=== PATIENT | female | born 1975 | race Two or more races ===

== ENCOUNTER 2016-12-21 17:57 | Emergency (ER) | payer OTHER ==
[~2016-12-21] VITALS: Ht 157.5 cm; Wt 102.9 kg
[2016-12-21] MEDS ORDERED: MAALOX/HYOSCYAMINE/LIDOCAINE 45 ML BOTTLE ONE (18:46)
[2016-12-21] MEDS ORDERED: DIPHENHYDRAMINE 25 MG CAPSULE ONE (18:46)
[2016-12-21] MEDS ORDERED: MAALOX/HYOSCYAMINE/LIDOCAINE 45 ML BOTTLE PO ONE (19:00)
[2016-12-21] MEDS ORDERED: DIPHENHYDRAMINE 25 MG CAPSULE PO ONE (19:00)
[2016-12-21 19:03] LABS: HEMOGLOBIN 15.1 g/dL (11.7-16.4)
[2016-12-21 19:16] LABS: ASPARTATE AMINO TRANSFERASE 27 U/L (15-37); BLOOD UREA NITROGEN 11 mg/dL (7-18)
[2016-12-21 19:22] LABS: IS PT STATUS REG ER OR PRE ER? YES
[2016-12-21 19:28] VITALS: BP 124/76
[2016-12-21] MEDS ORDERED: POTASSIUM CHLORIDE 20 MEQ TAB.ER.PRT PO ONE (19:30)
[2016-12-21] MEDS ORDERED: POTASSIUM CHLORIDE 20 MEQ TAB.ER.PRT ONE (19:41)
== END 2016-12-21 19:59 | disposition home or self-care (01) ==
LOC: ED 19:42
DX: R07.2 Precordial pain (principal); K21.0 Gastro-esophageal reflux disease with esophagitis; L50.9 Urticaria, unspecified; E87.6 Hypokalemia; I10 Essential (primary) hypertension
CPT/HCPCS: 36415; 71010; 80053; 83690; 84484; 84703; 85025; 93005; 99285; Q0163

== ENCOUNTER 2020-09-25 11:21 | Inpatient (IN) | payer OTHER ==
[~2020-09-25] VITALS: Ht 157.5 cm; Wt 103.6 kg
--- NOTE | 2020-09-25 12:35 | NUR ---
PT PLACED ON MONITOR, IV STARTED, LABS DRAWN AND LABELLED AND LEFT AT BEDSIDE FOR SPECIMEN TECHNICIAN. PT C/O COUGH AND TACHYCARDIA. RECENTLY DX WITH COVID 19 BY [facility] AND PT REPORTS TAKING DECONGESTANTS AND OTHER MEDICATIONS FOR HER COUGH. NAD NOTED AT THIS TIME. NO WOB NOTED.
[2020-09-25 12:49] LABS: BASOPHILS % (AUTO) 0 % (0-1); EOSINOPHILS % (AUTO) 0 % (1-7); LYMPHOCYTES % (AUTO) 20 % (22-44); MEAN CORPUSCULAR HEMOGLOBIN 31.3 pg (27.0-34.8); MEAN CORPUSCULAR HGB CONC 34.8 g/dL (32.4-35.8); MEAN PLATELET VOLUME 8.4 fL (7.4-10.4); MONOCYTES % (AUTO) 6 % (2-9); NEUTROPHILS % (AUTO) 74 % (42-75); PLATELET COUNT 212 x10^3/uL (130-400); RED BLOOD COUNT 5.21 x10^6/uL (3.82-5.3); RED CELL DISTRIBUTION WIDTH 13.2 % (9.6-15.2)
[2020-09-25 13:01] LABS: ALANINE AMINOTRANSFERASE 127 U/L (12-78); ALBUMIN 3.6 g/dL (3.4-5.0); ANION GAP 6 mmol/L (5-15); CHLORIDE 105 mmol/L (98-107); CREATININE 0.82 mg/dL (0.55-1.02)
[2020-09-25 13:07] LABS: ALKALINE PHOSPHATASE 133 U/L (45-117); BILIRUBIN,TOTAL 0.5 mg/dL (0.2-1.0); TOTAL PROTEIN 8.8 g/dL (6.4-8.2); TROPONIN I < 0.015 ng/mL (0.000-0.045)
[2020-09-25 13:09] LABS: D-DIMER (DIC) 1.43 ug/mlFEU (0.00-0.52)
[2020-09-25 13:15] LABS: MD NO
--- NOTE | 2020-09-25 13:42 | NUR ---
HOB MOVED TO POSITION OF COMFORT FOR PT. PT ASKING FOR WATER AND RN EDUCATED PT ON NPO STATUS UNTIL ALL IMAGING HAS BEEN COMPLETED. NAD NOTED AT THIS TIME. PT DENIES ANY FURTHER NEEDS.
--- NOTE | 2020-09-25 14:37 | NUR ---
SECONDARY RN CALL TO CT FOR UPDATE ON PT PLACE IN LINE.
--- NOTE | 2020-09-25 14:45 | NUR ---
ROOM AIR POX NOW 85% - PLACED ON 2L NC. PROVIDER MADE AWARE TO CT SCAN AT 2:50P
[2020-09-25] MEDS ORDERED: OMNIPAQUE 350 MG/ML, 100ML BOTTLE ONE (15:10)
[2020-09-25] MEDS ORDERED: CEFTRIAXONE PMX 1GM/50ML 50 ML IV ONE (15:30)
[2020-09-25] MEDS ORDERED: DEXAMETHASONE 4 MG/ML, 1ML IVPush ONE (15:30)
[2020-09-25] MEDS ORDERED: DOXYCYCLINE 100 MG in DEXTROSE 5% 250 ML IV ONE (15:30)
--- NOTE | 2020-09-25 15:32 | NUR ---
REPORT FROM CRIS SAM. PT TOLERATING NC WELL. LAYING BACK IN BED WATCHING TELEVISION. NAD NOTED AT THIS TIME. SIDE RAILS UP, CALL LIGHT IN REACH.
[2020-09-25] MEDS ORDERED: CEFTRIAXONE PMX 1GM/50ML 50 ML ONE (15:39)
[2020-09-25] MEDS ORDERED: DEXAMETHASONE 4 MG/ML, 1ML ONE (15:39)
[2020-09-25] MEDS ORDERED: LISI-167 PO (16:36)
--- NOTE | 2020-09-25 16:42 | NUR ---
PT LAYING BACK IN BED, WATCHING TELEVISION. NAD NOTED AT THIS TIME. PT SATURATING WELL ON NC. IVF INFUSING PER EMAR. SIDE RAILS UP, CALL LIGHT IN REACH. AWAITING ADMISSION BED.
--- NOTE | 2020-09-25 17:10 | NUR ---
FIRST ATTEMPT TO CALL REPORT.
[2020-09-25] MEDS ORDERED: MELATONIN 5 MG TABLET PO PRN (17:30)
[2020-09-25] MEDS ORDERED: THIAMINE 100MG TABLET PO ONE (17:30)
[2020-09-25] MEDS ORDERED: ONDANSETRON ODT 4 MG PO PRN (17:30)
[2020-09-25] MEDS ORDERED: ENALAPRILAT 1.25 MG/ML, 2ML IVPush PRN (17:30)
[2020-09-25] MEDS ORDERED: ENOXAPARIN 40 MG/0.4 ML SQ SCH (17:30)
[2020-09-25] MEDS ORDERED: ONDANSETRON 2MG/ML, 2ML IVPush PRN (17:30)
[2020-09-25] MEDS ORDERED: GUAIFENESIN/DM 200-20MG, 10ML UDC PO PRN (17:30)
[2020-09-25] MEDS ORDERED: ACETAMINOPHEN 325 MG TABLET PO PRN (17:30)
[2020-09-25] MEDS ORDERED: THIAMINE 100MG TABLET ONE (17:47)
[2020-09-25 18:38] VITALS: BP 109/67
[2020-09-25] MEDS: LISINOPRIL 10 MG TABLET PO SCH (21:00)
[2020-09-25] MEDS: ENOXAPARIN 100 MG/ML SQ SCH (21:00)
[2020-09-25] MEDS: FAMOTIDINE 20 MG TABLET PO SCH (21:16)
[2020-09-26 00:17] VITALS: BP 101/67
[2020-09-26 05:25] LABS: BASOPHILS % (AUTO) 0 % (0-1); EOSINOPHILS % (AUTO) 0 % (1-7); LYMPHOCYTES % (AUTO) 33 % (22-44); MEAN CORPUSCULAR HGB CONC 34.6 g/dL (32.4-35.8); MEAN PLATELET VOLUME 8.5 fL (7.4-10.4); MONOCYTES % (AUTO) 12 % (2-9); NEUTROPHILS % (AUTO) 55 % (42-75); PLATELET COUNT 238 x10^3/uL (130-400); RED BLOOD COUNT 4.91 x10^6/uL (3.82-5.3); RED CELL DISTRIBUTION WIDTH 13.3 % (9.6-15.2)
[2020-09-26 05:33] LABS: ALANINE AMINOTRANSFERASE 106 U/L (12-78); ALBUMIN 3.3 g/dL (3.4-5.0); CREATININE 0.87 mg/dL (0.55-1.02)
[2020-09-26 05:42] LABS: ALKALINE PHOSPHATASE 118 U/L (45-117); BILIRUBIN,TOTAL 0.6 mg/dL (0.2-1.0); TOTAL PROTEIN 8.1 g/dL (6.4-8.2)
[2020-09-26 05:48] LABS: ANION GAP 5 mmol/L (5-15); CHLORIDE 104 mmol/L (98-107)
[2020-09-26 06:10] LABS: MD SCAN
[2020-09-26 06:52] VITALS: BP 116/80
[2020-09-26] MEDS: DOXYCYCLINE 100MG TABLET PO SCH ×2 (08:10→19:57)
[2020-09-26] MEDS: ZINC SULFATE 220 MG CAPSULE PO SCH (08:10)
[2020-09-26] MEDS: CHOLECALCIFEROL 1,000 UNIT TABLET PO SCH (08:10)
[2020-09-26] MEDS: FAMOTIDINE 20 MG TABLET PO SCH ×2 (08:10→19:57)
[2020-09-26] MEDS: ASCORBIC ACID 500 MG TABLET PO SCH ×2 (08:13→16:32)
[2020-09-26] MEDS: DEXAMETHASONE 4 MG/ML, 1ML IVPush SCH (08:13)
[2020-09-26] MEDS: ENOXAPARIN 100 MG/ML SQ SCH ×2 (08:15→19:57)
[2020-09-26] MEDS: CEFTRIAXONE PMX 1GM/50ML 50 ML IV SCH (09:19)
[2020-09-26 12:13] VITALS: BP 138/82
[2020-09-26 19:41] VITALS: BP 122/84
[2020-09-26] MEDS: LISINOPRIL 10 MG TABLET PO SCH (19:57)
[2020-09-27 01:03] VITALS: BP 117/77
[2020-09-27] MEDS: ASCORBIC ACID 500 MG TABLET PO SCH (07:42)
[2020-09-27 07:48] VITALS: BP 114/72
[2020-09-27] MEDS: DOXYCYCLINE 100MG TABLET PO SCH (08:45)
[2020-09-27] MEDS: CHOLECALCIFEROL 1,000 UNIT TABLET PO SCH (08:45)
[2020-09-27] MEDS: ENOXAPARIN 100 MG/ML SQ SCH (08:46)
[2020-09-27] MEDS: FAMOTIDINE 20 MG TABLET PO SCH (08:46)
[2020-09-27] MEDS: ZINC SULFATE 220 MG CAPSULE PO SCH (08:46)
[2020-09-27] MEDS: DEXAMETHASONE 4 MG/ML, 1ML IVPush SCH (08:48)
[2020-09-27] MEDS: CEFTRIAXONE PMX 1GM/50ML 50 ML IV SCH (09:07)
[2020-09-27] MEDS ORDERED: MELA5TAB14 PO (11:07)
[2020-09-27] MEDS ORDERED: ASCO500T9 PO (11:07)
[2020-09-27] MEDS ORDERED: ZINC220C7 PO (11:07)
[2020-09-27] MEDS ORDERED: ASPI-13 PO (11:07)
[2020-09-27] MEDS ORDERED: CHOL10003 PO ×2 (11:07)
[2020-09-27] MEDS ORDERED: chole (11:13)
[2020-09-27] MEDS ORDERED: CHOL1CAP6 PEG (11:13)
== END 2020-09-27 12:46 | disposition home or self-care (01) | DRG 177 ==
LOC: ED 16:33 → EDIP 17:00 → 3N 17:44
PROVIDERS: ADMIT Hospitalist; ATTEND Family Medicine
DX: U07.1 COVID-19 (principal); J96.01 Acute respiratory failure with hypoxia; J12.82 Pneumonia due to coronavirus disease 2019; Z68.41 Body mass index [BMI] 40.0-44.9, adult; E66.01 Morbid (severe) obesity due to excess calories; I10 Essential (primary) hypertension
CPT/HCPCS: 36415; 71045; 71275; 80053; 80074; 82728; 83605; 83615; 83735; 84100; 84145; 84484; 85025; 85049; 85379; 85384; 85610; 85730; 86140; 87040; 93005; 96365; 96375; 99285; G0378; J0696; J1100; J1650; J7060; Q9967

== ENCOUNTER 2020-12-25 03:47 | Inpatient (IN) | payer OTHER ==
[~2020-12-25] VITALS: Ht 157.5 cm; Wt 111.4 kg
[~2020-12-25 03:47] MED LIST: ASCO500T9 PO; ASPI-13 PO; CHOL10003 PO; CHOL1CAP6 PEG; LISI-167 PO; MELA5TAB14 PO; ZINC220C7 PO; chole
--- NOTE | 2020-12-25 04:30 | NUR ---
PT ARRIVED WITH FAMILY AT PT SIDE, PT HAS 10/10 UPPER CENTER ABD PAIN THAT SHE HAS HAD IN THE PPAST 6 MONTHS 1ONCE BUT CLEARED UP ON IT'S OWN PER PT.
[2020-12-25 04:38] LABS: MICROSCOPIC INDICATED
[2020-12-25] MEDS ORDERED: ONDANSETRON 2MG/ML, 2ML ONE (04:50)
[2020-12-25] MEDS ORDERED: MORPHINE SULFATE 4 MG/ML, 1ML ONE ×2 (04:51→05:45)
[2020-12-25] MEDS ORDERED: SODIUM CHLORIDE FLUSH 10ML SYR IVF ONE (05:00)
[2020-12-25] MEDS ORDERED: ONDANSETRON 2MG/ML, 2ML IVPush ONE (05:00)
[2020-12-25] MEDS: MORPHINE SULFATE 4 MG/ML, 1ML IVPush PRN ×2 (05:01→06:06)
[2020-12-25] MEDS ORDERED: CEFTRIAXONE PMX 1GM/50ML 50 ML ONE (05:25)
[2020-12-25] MEDS ORDERED: CEFTRIAXONE PMX 1GM/50ML 50 ML IV ONE (05:30)
[2020-12-25 05:37] LABS: BASOPHILS % (AUTO) 0 % (0-1); EOSINOPHILS % (AUTO) 0 % (1-7); LYMPHOCYTES % (AUTO) 16 % (22-44); MEAN CORPUSCULAR HGB CONC 34.3 g/dL (32.4-35.8); MEAN PLATELET VOLUME 8.8 fL (7.4-10.4); MONOCYTES % (AUTO) 4 % (2-9); NEUTROPHILS % (AUTO) 79 % (42-75); PLATELET COUNT 226 x10^3/uL (130-400); RED BLOOD COUNT 5.24 x10^6/uL (3.82-5.3); RED CELL DISTRIBUTION WIDTH 13.9 % (9.6-15.2)
[2020-12-25 05:46] LABS: ALBUMIN 3.5 g/dL (3.4-5.0); ANION GAP 7 mmol/L (5-15); CALCIUM 8.4 mg/dL (8.5-10.1); CHLORIDE 108 mmol/L (98-107)
[2020-12-25 05:53] LABS: ALANINE AMINOTRANSFERASE 124 U/L (12-78); ALKALINE PHOSPHATASE 128 U/L (45-117); BILIRUBIN,TOTAL 0.7 mg/dL (0.2-1.0); TOTAL PROTEIN 7.3 g/dL (6.4-8.2)
[2020-12-25] MEDS ORDERED: OMNIPAQUE 350 MG/ML, 100ML BOTTLE ONE (06:21)
[2020-12-25] MEDS ORDERED: LACTATED RINGERS 1,000 ML IVBOLUS ONE (06:30)
[2020-12-25] MEDS ORDERED: HYDROmorphone 1 MG/ML, 1ML INJ ONE (07:20)
--- NOTE | 2020-12-25 07:27 | NUR ---
PT UP AMBULATORY TO BATHROOM. BACK TO BED. JERRY. JOAN.
[2020-12-25] MEDS ORDERED: HYDROmorphone 1 MG/ML, 1ML INJ IV ONE (07:30)
--- NOTE | 2020-12-25 07:56 | NUR ---
report called to gilbert guzman. pt ready to transfter to floor
[2020-12-25 08:50] VITALS: BP 137/92
[2020-12-25] MEDS ORDERED: SODIUM CHLORIDE 0.9% 1,000ML IVBOLUS ONE (09:00)
[2020-12-25] MEDS ORDERED: ONDANSETRON 2MG/ML, 2ML IVPush PRN ×2 (09:30→10:30)
[2020-12-25] MEDS: HYDROmorphone 2 MG/ML, 1ML IVPush PRN ×7 (09:38→23:04)
[2020-12-25] MEDS ORDERED: ENALAPRILAT 1.25 MG/ML, 2ML IVPush PRN (10:30)
[2020-12-25] MEDS ORDERED: SODIUM CHLORIDE 0.9% 1,000 ML IV SCH (10:30)
[2020-12-25] MEDS ORDERED: POTASSIUM CHLORIDE 40 MEQ in SODIUM CHLORIDE 0.9% 500 ML IV ONE (10:30)
[2020-12-25] MEDS ORDERED: HYDROmorphone 2 MG/ML, 1ML IVPush PRN (10:30)
[2020-12-25] MEDS: SODIUM CHLORIDE 0.9% 1,000 ML IV SCH ×2 (10:45→21:45)
[2020-12-25] MEDS: CEFTRIAXONE PMX 1GM/50ML 50 ML IV SCH (11:54)
[2020-12-25] MEDS: ENOXAPARIN 40 MG/0.4 ML SQ SCH (11:55)
[2020-12-25 15:11] VITALS: BP 132/81
[2020-12-25 18:45] VITALS: BP 140/88
[2020-12-26 01:21] VITALS: BP 135/85
[2020-12-26] MEDS: HYDROmorphone 2 MG/ML, 1ML IVPush PRN ×6 (01:49→22:28)
[2020-12-26] MEDS: SODIUM CHLORIDE 0.9% 1,000 ML IV SCH ×3 (04:17→16:15)
[2020-12-26 05:50] LABS: BASOPHILS % (AUTO) 0 % (0-1); EOSINOPHILS % (AUTO) 0 % (1-7); LYMPHOCYTES % (AUTO) 7 % (22-44); MEAN CORPUSCULAR HEMOGLOBIN 30.8 pg (27.0-34.8); MEAN PLATELET VOLUME 9.1 fL (7.4-10.4); MONOCYTES % (AUTO) 7 % (2-9); NEUTROPHILS % (AUTO) 86 % (42-75); PLATELET COUNT 227 x10^3/uL (130-400); RED BLOOD COUNT 5.21 x10^6/uL (3.82-5.3); RED CELL DISTRIBUTION WIDTH 14.1 % (9.6-15.2)
[2020-12-26 06:10] LABS: ALANINE AMINOTRANSFERASE 63 U/L (12-78); ALBUMIN 3.1 g/dL (3.4-5.0); ANION GAP 7 mmol/L (5-15); CALCIUM 7.3 mg/dL (8.5-10.1); CHLORIDE 112 mmol/L (98-107); CHOLESTEROL, TOTAL 128 mg/dL (140-239); CREATININE 0.68 mg/dL (0.55-1.02); TRIGLYCERIDES 151 mg/dL (50-200); VLDL CHOLESTEROL 30 mg/dL (0-25)
[2020-12-26 06:13] LABS: ALKALINE PHOSPHATASE 88 U/L (45-117); BILIRUBIN,TOTAL 0.7 mg/dL (0.2-1.0); CHOL/HDL RATIO 3.5; HDL CHOL % 29 % (28-40); HDL CHOLESTEROL (DIRECT) 37 mg/dL (40-60); LDL CHOLESTEROL,CALCULATED 61 mg/dL (54-169); LDL/HDL RATIO 1.6 (0.5-3.0); TOTAL PROTEIN 6.5 g/dL (6.4-8.2)
[2020-12-26 06:31] VITALS: BP 126/82
[2020-12-26] MEDS: PANTOPRAZOLE 40 MG IV IVPush SCH (09:06)
[2020-12-26] MEDS: ENOXAPARIN 40 MG/0.4 ML SQ SCH (12:04)
[2020-12-26] MEDS: CEFTRIAXONE PMX 1GM/50ML 50 ML IV SCH (12:04)
[2020-12-26 12:34] VITALS: BP 131/87
[2020-12-26] MEDS: HYDROcodone/APAP 5/325 TABLET PO PRN ×2 (14:34→20:29)
[2020-12-26 18:53] VITALS: BP 138/84
[2020-12-26] MEDS ORDERED: ALBUTEROL HFA 90 MCG/SPRAY INH PRN (20:00)
[2020-12-26] MEDS ORDERED: CETIRIZINE 10 MG TABLET PO ONE (20:30)
[2020-12-27] MEDS: SODIUM CHLORIDE 0.9% 1,000 ML IV SCH ×4 (00:17→15:56)
[2020-12-27 00:26] VITALS: BP 143/93
[2020-12-27] MEDS: HYDROmorphone 2 MG/ML, 1ML IVPush PRN ×6 (01:28→20:03)
[2020-12-27] MEDS: HYDROcodone/APAP 5/325 TABLET PO PRN ×2 (04:04→21:54)
[2020-12-27 05:24] LABS: MEAN CORPUSCULAR HEMOGLOBIN 30.9 pg (27.0-34.8); MEAN CORPUSCULAR HGB CONC 33.8 g/dL (32.4-35.8); MEAN PLATELET VOLUME 8.9 fL (7.4-10.4); PLATELET COUNT 186 x10^3/uL (130-400); RED BLOOD COUNT 4.45 x10^6/uL (3.82-5.3); RED CELL DISTRIBUTION WIDTH 14.1 % (9.6-15.2)
[2020-12-27 05:28] LABS: ALBUMIN 2.9 g/dL (3.4-5.0); ANION GAP 5 mmol/L (5-15); CALCIUM 7.4 mg/dL (8.5-10.1); CHLORIDE 107 mmol/L (98-107)
[2020-12-27 05:33] LABS: ALANINE AMINOTRANSFERASE 51 U/L (12-78); ALKALINE PHOSPHATASE 68 U/L (45-117); BILIRUBIN,TOTAL 1.6 mg/dL (0.2-1.0); CREATININE 0.58 mg/dL (0.55-1.02); TOTAL PROTEIN 6.5 g/dL (6.4-8.2)
[2020-12-27 06:09] LABS: BAND#(MANUAL) 1.97 x10^3/uL; BANDS%(MANUAL) 11 % (0-7); LYMPHS% (MANUAL) 5 % (22-44); MONOS#(MANUAL) 0.36 x10^3/uL (0.3-2.7); MONOS% (MANUAL) 2 % (2-9); SEG#(MANUAL) 14.68 x10^3/uL (1.8-6.8); SEGS% (MANUAL) 82 % (42-75)
[2020-12-27 06:10] LABS: <PLATELET ESTIMATE> ADEQUATE; <PLT MORPHOLOGY> NORMAL PLT MORPH; <RBC MORPHOLOGY> NORMAL; PMNS WITH VACUOLES 1+
[2020-12-27 06:57] VITALS: BP 145/86
[2020-12-27] MEDS ORDERED: POTASSIUM CHLORIDE 40 MEQ in SODIUM CHLORIDE 0.9% 500 ML IV ONE (07:00)
[2020-12-27] MEDS: PANTOPRAZOLE 40 MG IV IVPush SCH (08:09)
[2020-12-27] MEDS: ALBUTEROL HFA 90 MCG/SPRAY INH SCH ×3 (09:45→20:39)
[2020-12-27] MEDS ORDERED: CHLORHEXIDINE 15 ML UDC ONE (11:43)
[2020-12-27 11:47] VITALS: BP 137/83
[2020-12-27] MEDS: CEFTRIAXONE PMX 1GM/50ML 50 ML IV SCH (11:54)
[2020-12-27] MEDS: ENOXAPARIN 40 MG/0.4 ML SQ SCH (11:57)
[2020-12-27] MEDS ORDERED: CHLORHEXIDINE 15 ML UDC PO ONE (12:00)
[2020-12-27] MEDS ORDERED: EPINEPHRINE 1 MG/ML, 1ML ONE (12:37)
[2020-12-27] MEDS ORDERED: BUPIVACAINE/PF 0.5% ONE (12:37)
[2020-12-27] MEDS ORDERED: FENTANYL PF 250 MCG/5ML ONE (13:08)
[2020-12-27] MEDS ORDERED: ALBUTEROL HFA 90 MCG/SPRAY INH PRN (14:00)
[2020-12-27 15:16] VITALS: BP 141/82
[2020-12-27] MEDS ORDERED: ENOXAPARIN 40 MG/0.4 ML SQ ONE (18:30)
[2020-12-27 19:22] VITALS: BP 143/83
[2020-12-27] MEDS ORDERED: OMNIPAQUE 350 MG/ML, 75ML BOTTLE ONE (23:04)
[2020-12-28 00:05] VITALS: BP 136/85
[2020-12-28] MEDS: HYDROmorphone 2 MG/ML, 1ML IVPush PRN ×7 (00:19→21:27)
[2020-12-28] MEDS: ALBUTEROL HFA 90 MCG/SPRAY INH SCH ×4 (00:42→19:51)
[2020-12-28 05:11] LABS: BASOPHILS % (AUTO) 0 % (0-1); EOSINOPHILS % (AUTO) 0 % (1-7); LYMPHOCYTES % (AUTO) 9 % (22-44); MEAN CORPUSCULAR HGB CONC 34.1 g/dL (32.4-35.8); MEAN PLATELET VOLUME 8.3 fL (7.4-10.4); MONOCYTES % (AUTO) 6 % (2-9); NEUTROPHILS % (AUTO) 84 % (42-75); PLATELET COUNT 194 x10^3/uL (130-400); RED BLOOD COUNT 3.92 x10^6/uL (3.82-5.3)
[2020-12-28 05:25] LABS: ALBUMIN 2.7 g/dL (3.4-5.0); ANION GAP 5 mmol/L (5-15); CALCIUM 7.8 mg/dL (8.5-10.1); CHLORIDE 108 mmol/L (98-107)
[2020-12-28 05:28] LABS: ALANINE AMINOTRANSFERASE 39 U/L (12-78); ALKALINE PHOSPHATASE 69 U/L (45-117); BILIRUBIN,TOTAL 2.1 mg/dL (0.2-1.0); CREATININE 0.49 mg/dL (0.55-1.02); TOTAL PROTEIN 6.6 g/dL (6.4-8.2)
[2020-12-28] MEDS: PANTOPRAZOLE 40MG TABLET PO SCH (06:41)
[2020-12-28] MEDS: SODIUM CHLORIDE 0.9% 1,000 ML IV SCH ×3 (06:42→22:38)
[2020-12-28 07:10] VITALS: BP 158/90
[2020-12-28] MEDS: POTASSIUM CHLORIDE 20 MEQ TAB.ER.PRT PO SCH ×2 (09:30→15:41)
[2020-12-28] MEDS: MEROPENEM 1 GM in SODIUM CHLORIDE 0.9% 100 ML IV SCH ×2 (09:30→17:58)
[2020-12-28] MEDS: ENOXAPARIN 30 MG/0.3 ML SQ SCH ×2 (12:07→23:54)
[2020-12-28] MEDS: HYDROcodone/APAP 5/325 TABLET PO PRN (12:08)
[2020-12-28 12:45] VITALS: BP 149/97
[2020-12-28] MEDS: SENNA/DOCUSATE TABLET PO SCH (12:54)
[2020-12-28] MEDS: SIMETHICONE 125 MG CHEW TAB PO SCH ×2 (15:41→21:27)
[2020-12-28 19:22] VITALS: BP 138/81
[2020-12-29 00:58] VITALS: BP 146/81
[2020-12-29] MEDS: HYDROmorphone 2 MG/ML, 1ML IVPush PRN ×5 (01:24→20:30)
[2020-12-29] MEDS: ENOXAPARIN 30 MG/0.3 ML SQ SCH ×2 (01:30→10:21)
[2020-12-29] MEDS: MEROPENEM 1 GM in SODIUM CHLORIDE 0.9% 100 ML IV SCH ×3 (01:57→18:00)
[2020-12-29] MEDS: ALBUTEROL HFA 90 MCG/SPRAY INH SCH (03:08)
[2020-12-29] MEDS: PANTOPRAZOLE 40MG TABLET PO SCH (05:44)
[2020-12-29 06:07] LABS: MEAN CORPUSCULAR HEMOGLOBIN 30.7 pg (27.0-34.8); MEAN CORPUSCULAR HGB CONC 33.8 g/dL (32.4-35.8); MEAN PLATELET VOLUME 7.8 fL (7.4-10.4); PLATELET COUNT 230 x10^3/uL (130-400); RED BLOOD COUNT 3.79 x10^6/uL (3.82-5.3)
[2020-12-29 06:19] LABS: ALBUMIN 2.5 g/dL (3.4-5.0); ANION GAP 6 mmol/L (5-15); CALCIUM 7.9 mg/dL (8.5-10.1); CHLORIDE 104 mmol/L (98-107)
[2020-12-29 06:23] LABS: ALANINE AMINOTRANSFERASE 32 U/L (12-78); ALKALINE PHOSPHATASE 66 U/L (45-117); BILIRUBIN,TOTAL 1.9 mg/dL (0.2-1.0); TOTAL PROTEIN 6.4 g/dL (6.4-8.2)
[2020-12-29 06:47] LABS: BAND#(MANUAL) 0.86 x10^3/uL; BANDS%(MANUAL) 6 % (0-7); EOS#(MANUAL) 0.14 x10^3/uL (0.0-0.4); EOS% (MANUAL) 1 % (1-7); LYMPH#(MANUAL) 1.57 x10^3/uL (1-3.4); LYMPHS% (MANUAL) 11 % (22-44); MONOS#(MANUAL) 0.86 x10^3/uL (0.3-2.7); MONOS% (MANUAL) 6 % (2-9); PMNS WITH VACUOLES 1+; POLYCHROMASIA 1+; SEG#(MANUAL) 10.87 x10^3/uL (1.8-6.8); SEGS% (MANUAL) 76 % (42-75)
[2020-12-29 06:48] LABS: <PLATELET ESTIMATE> ADEQUATE; <PLT MORPHOLOGY> NORMAL PLT MORPH
[2020-12-29] MEDS: SENNA/DOCUSATE TABLET PO SCH (09:13)
[2020-12-29] MEDS: SIMETHICONE 125 MG CHEW TAB PO SCH ×3 (09:13→20:29)
[2020-12-29] MEDS: SODIUM CHLORIDE 0.9% 1,000 ML IV SCH (09:14)
[2020-12-29 09:39] VITALS: BP 146/91
[2020-12-29] MEDS: POTASSIUM CHLORIDE 20 MEQ TAB.ER.PRT PO SCH ×2 (11:44→17:14)
[2020-12-29] MEDS: HYDROcodone/APAP 5/325 TABLET PO PRN ×2 (11:44→18:00)
[2020-12-29 14:22] VITALS: BP 138/89
[2020-12-29 20:05] VITALS: BP 139/82
[2020-12-30 01:25] VITALS: BP 151/95
[2020-12-30] MEDS: HYDROcodone/APAP 5/325 TABLET PO PRN (01:34)
[2020-12-30] MEDS: MEROPENEM 1 GM in SODIUM CHLORIDE 0.9% 100 ML IV SCH ×3 (02:53→17:54)
[2020-12-30] MEDS: SODIUM CHLORIDE 0.9% 1,000 ML IV SCH (05:21)
[2020-12-30] MEDS: PANTOPRAZOLE 40MG TABLET PO SCH (05:25)
[2020-12-30] MEDS: HYDROmorphone 2 MG/ML, 1ML IVPush PRN ×2 (05:57→12:32)
[2020-12-30 05:58] LABS: BASOPHILS % (AUTO) 0 % (0-1); EOSINOPHILS % (AUTO) 1 % (1-7); LYMPHOCYTES % (AUTO) 11 % (22-44); MEAN CORPUSCULAR HEMOGLOBIN 30.4 pg (27.0-34.8); MEAN CORPUSCULAR HGB CONC 33.4 g/dL (32.4-35.8); MEAN PLATELET VOLUME 8.2 fL (7.4-10.4); MONOCYTES % (AUTO) 11 % (2-9); NEUTROPHILS % (AUTO) 77 % (42-75); PLATELET COUNT 258 x10^3/uL (130-400); RED BLOOD COUNT 3.87 x10^6/uL (3.82-5.3)
[2020-12-30 06:03] LABS: CHLORIDE 104 mmol/L (98-107)
[2020-12-30 06:10] LABS: ALANINE AMINOTRANSFERASE 32 U/L (12-78); ALBUMIN 2.4 g/dL (3.4-5.0); ALKALINE PHOSPHATASE 96 U/L (45-117); ANION GAP 6 mmol/L (5-15); BILIRUBIN,TOTAL 1.4 mg/dL (0.2-1.0); CALCIUM 8.1 mg/dL (8.5-10.1); CREATININE 0.49 mg/dL (0.55-1.02); TOTAL PROTEIN 6.7 g/dL (6.4-8.2)
[2020-12-30 07:10] VITALS: BP 133/91
[2020-12-30] MEDS ORDERED: POLYETHYLENE GLYCOL 17 GM PACKET NG PRN (10:00)
[2020-12-30] MEDS: POTASSIUM CHLORIDE 20 MEQ TAB.ER.PRT PO SCH ×2 (10:15→16:51)
[2020-12-30] MEDS: SENNA/DOCUSATE TABLET PO SCH (10:16)
[2020-12-30] MEDS: SIMETHICONE 125 MG CHEW TAB PO SCH ×3 (10:17→20:21)
[2020-12-30] MEDS: OXYcodone IR 5MG TABLET PO PRN ×3 (10:19→20:22)
[2020-12-30] MEDS: ENOXAPARIN 30 MG/0.3 ML SQ SCH ×2 (10:20→23:34)
[2020-12-30] MEDS: LISINOPRIL 10 MG TABLET PO SCH (10:31)
[2020-12-30 15:38] VITALS: BP 144/82
[2020-12-30 20:09] VITALS: BP 133/83
[2020-12-31 00:32] VITALS: BP 129/82
[2020-12-31] MEDS: OXYcodone IR 5MG TABLET PO PRN ×5 (01:23→21:06)
[2020-12-31] MEDS: MEROPENEM 1 GM in SODIUM CHLORIDE 0.9% 100 ML IV SCH ×3 (01:50→17:40)
[2020-12-31] MEDS: PANTOPRAZOLE 40MG TABLET PO SCH (05:44)
[2020-12-31 06:20] LABS: BASOPHILS % (AUTO) 1 % (0-1); EOSINOPHILS % (AUTO) 1 % (1-7); LYMPHOCYTES % (AUTO) 15 % (22-44); MEAN CORPUSCULAR HEMOGLOBIN 30.3 pg (27.0-34.8); MEAN CORPUSCULAR HGB CONC 33.5 g/dL (32.4-35.8); MEAN PLATELET VOLUME 7.8 fL (7.4-10.4); MONOCYTES % (AUTO) 11 % (2-9); NEUTROPHILS % (AUTO) 73 % (42-75); PLATELET COUNT 302 x10^3/uL (130-400); RED BLOOD COUNT 4.02 x10^6/uL (3.82-5.3)
[2020-12-31 06:26] LABS: ALBUMIN 2.4 g/dL (3.4-5.0); ANION GAP 5 mmol/L (5-15); CALCIUM 8.6 mg/dL (8.5-10.1); CHLORIDE 100 mmol/L (98-107); CREATININE 0.63 mg/dL (0.55-1.02)
[2020-12-31 06:29] LABS: ALANINE AMINOTRANSFERASE 35 U/L (12-78); ALKALINE PHOSPHATASE 110 U/L (45-117); BILIRUBIN,TOTAL 1.1 mg/dL (0.2-1.0)
[2020-12-31 08:03] VITALS: BP 121/84
[2020-12-31] MEDS: SENNA/DOCUSATE TABLET PO SCH (08:19)
[2020-12-31] MEDS: LISINOPRIL 10 MG TABLET PO SCH (08:20)
[2020-12-31] MEDS: SIMETHICONE 125 MG CHEW TAB PO SCH ×3 (08:20→20:06)
[2020-12-31] MEDS: ENOXAPARIN 30 MG/0.3 ML SQ SCH (11:30)
[2020-12-31 11:57] VITALS: BP 119/71
[2020-12-31 20:05] VITALS: BP 148/89
[2021-01-01] MEDS: ENOXAPARIN 30 MG/0.3 ML SQ SCH ×2 (00:03→12:34)
[2021-01-01 01:04] VITALS: BP 121/85
[2021-01-01] MEDS: OXYcodone IR 5MG TABLET PO PRN ×3 (01:10→09:06)
[2021-01-01] MEDS: MEROPENEM 1 GM in SODIUM CHLORIDE 0.9% 100 ML IV SCH ×2 (02:19→09:09)
[2021-01-01 04:47] LABS: CALCIUM 8.8 mg/dL (8.5-10.1); CHLORIDE 98 mmol/L (98-107)
[2021-01-01 04:51] LABS: ALANINE AMINOTRANSFERASE 37 U/L (12-78); ALBUMIN 2.4 g/dL (3.4-5.0); ALKALINE PHOSPHATASE 109 U/L (45-117); ANION GAP 8 mmol/L (5-15); BILIRUBIN,TOTAL 0.9 mg/dL (0.2-1.0); CREATININE 0.53 mg/dL (0.55-1.02)
[2021-01-01] MEDS: PANTOPRAZOLE 40MG TABLET PO SCH (05:04)
[2021-01-01 07:38] VITALS: BP 124/80
[2021-01-01] MEDS ORDERED: DEXAMETHASONE 4 MG TABLET PO SCH (08:00)
[2021-01-01] MEDS: SENNA/DOCUSATE TABLET PO SCH (08:57)
[2021-01-01] MEDS: LISINOPRIL 10 MG TABLET PO SCH (08:57)
[2021-01-01] MEDS: SIMETHICONE 125 MG CHEW TAB PO SCH (08:57)
[2021-01-01 12:31] VITALS: BP 136/83
[2021-01-01] MEDS ORDERED: DOXY100T PO (13:25)
[2021-01-01] MEDS ORDERED: DEXA4TAB66 PO (13:25)
[2021-01-01] MEDS ORDERED: OXYC5TAB98 PO ×3 (14:35→16:04)
== END 2021-01-01 16:10 | disposition home or self-care (01) | DRG 871 ==
LOC: ED 05:55 → EDIP 06:57 → 4NE 08:22 → 4WST 12-27 15:12 → DCLOUNGE 01-01 16:05
PROVIDERS: ADMIT Hospitalist; ATTEND Internal Medicine
DX: A41.9 Sepsis, unspecified organism (principal); J96.01 Acute respiratory failure with hypoxia; K85.10 Biliary acute pancreatitis without necrosis or infection; N39.0 Urinary tract infection, site not specified; Z68.41 Body mass index [BMI] 40.0-44.9, adult; Z20.822 Contact with and (suspected) exposure to COVID-19; K82.8 Other specified diseases of gallbladder; K80.20 Calculus of gallbladder without cholecystitis without obstruction; I10 Essential (primary) hypertension; K86.89 Other specified diseases of pancreas; N83.209 Unspecified ovarian cyst, unspecified side; Z80.0 Family history of malignant neoplasm of digestive organs; Z86.16 Personal history of COVID-19; Z87.01 Personal history of pneumonia (recurrent); Z97.5 Presence of (intrauterine) contraceptive device; E87.6 Hypokalemia; E66.9 Obesity, unspecified; E11.65 Type 2 diabetes mellitus with hyperglycemia
CPT/HCPCS: 36415; 36600; 96365; 96375; 96376; 99285; S0020; 71045; 71275; 74176; 74177; 76700; 80053; 80061; 81001; 82803; 83036; 83690; 83735; 84703; 85025; 87086; 87635; 93005; 94640; G0378; J0171; J0696; J1170; J1650; J2185; J2405; J3010; J3480; Q9967; C9113; J2270; J7030; J7040; J7120

== ENCOUNTER 2021-01-11 01:12 | Emergency (ER) | payer OTHER ==
[~2021-01-11] VITALS: Ht 157.5 cm; Wt 99.2 kg
[~2021-01-11 01:12] MED LIST changes: +DEXA4TAB66 PO; +DOXY100T PO; +OXYC5TAB98 PO
[2021-01-11] MEDS ORDERED: SODIUM CHLORIDE FLUSH 10ML SYR IVF ONE (01:30)
--- NOTE | 2021-01-11 01:41 | NUR ---
CC ABDOMINAL PAIN, STATES SHE WAS SEEN HERE ABOUT 2 WEEKS AGO FOR IT, DX WITH GALLBLADDER ISSUES. PT REPORTS PAIN IS BACK WORSENING OVER THE PAST THREE DAYS. HYDROCODONE 10MG @2320
[2021-01-11 01:42] LABS: BASOPHILS % (AUTO) 1 % (0-1); EOSINOPHILS % (AUTO) 2 % (1-7); LYMPHOCYTES % (AUTO) 27 % (22-44); MEAN CORPUSCULAR HEMOGLOBIN 30.1 pg (27.0-34.8); MEAN CORPUSCULAR HGB CONC 33.1 g/dL (32.4-35.8); MEAN PLATELET VOLUME 7.3 fL (7.4-10.4); MONOCYTES % (AUTO) 6 % (2-9); NEUTROPHILS % (AUTO) 63 % (42-75); PLATELET COUNT 571 x10^3/uL (130-400); RED BLOOD COUNT 4.82 x10^6/uL (3.82-5.3)
[2021-01-11 01:51] LABS: ALANINE AMINOTRANSFERASE 39 U/L (12-78); ANION GAP 4 mmol/L (5-15); CALCIUM 9.3 mg/dL (8.5-10.1); CHLORIDE 101 mmol/L (98-107); CREATININE 0.84 mg/dL (0.55-1.02)
[2021-01-11 01:56] LABS: ALKALINE PHOSPHATASE 104 U/L (45-117); BILIRUBIN,TOTAL 0.6 mg/dL (0.2-1.0); TOTAL PROTEIN 7.6 g/dL (6.4-8.2)
[2021-01-11 02:00] LABS: MD NO
[2021-01-11] MEDS ORDERED: SODIUM CHLORIDE 0.9% 1,000ML IVBOLUS ONE (03:30)
[2021-01-11] MEDS ORDERED: ONDANSETRON 2MG/ML, 2ML ONE (03:56)
[2021-01-11] MEDS ORDERED: MORPHINE SULFATE 4 MG/ML, 1ML ONE (03:56)
[2021-01-11] MEDS ORDERED: ONDANSETRON 2MG/ML, 2ML IVPush ONE (04:00)
[2021-01-11] MEDS ORDERED: MORPHINE SULFATE 4 MG/ML, 1ML IVPush PRN (04:00)
[2021-01-11 04:07] VITALS: BP 123/69
== END 2021-01-11 04:39 | disposition home or self-care (01) ==
LOC: ED 01:42
DX: K85.10 Biliary acute pancreatitis without necrosis or infection (principal); R10.31 Right lower quadrant pain; R10.13 Epigastric pain; R11.0 Nausea; I10 Essential (primary) hypertension; K21.9 Gastro-esophageal reflux disease without esophagitis
CPT/HCPCS: 36415; 76700; 80053; 83690; 84703; 85025; 96374; 96375; 99284; J2270; J2405; J7030